=== PATIENT | female | born 1980 | race Asian ===

== ENCOUNTER 2019-12-20 11:46 | Emergency (ER) | payer OTHER ==
[~2019-12-20] VITALS: Ht 160 cm; Wt 61.2 kg
[2019-12-20 12:00] VITALS: BP 131/79
[2019-12-20] MEDS ORDERED: BENZ-16 PO (13:45)
[2019-12-20] MEDS ORDERED: ATRNS (13:45)
== END 2019-12-20 13:56 | disposition home or self-care (01) ==
LOC: ER 11:47
DX: R05 Cough (principal); R06.02 Shortness of breath; J02.9 Acute pharyngitis, unspecified; R50.9 Fever, unspecified; Z79.899 Other long term (current) drug therapy
CPT/HCPCS: 71045; 93005; 99283